=== PATIENT | female | born 1975 | race Hispanic/Latino ===

== ENCOUNTER 2021-02-07 16:08 | Emergency (ER) | payer MEDICAID, OTHER ==
[~2021-02-07] VITALS: Ht 152.4 cm; Wt 60.8 kg
[2021-02-07] MEDS ORDERED: NS 1,000 ML IV ONE ×2 (16:50→18:15)
[2021-02-07] MEDS ORDERED: KETOROLAC 30 MG/ML 1ML VIAL IV ONE (16:50)
[2021-02-07] MEDS ORDERED: METOCLOPRAMIDE INJ 10MG/2ML VIAL (J2765 PER 1) IV ONE (16:50)
[2021-02-07 17:30] LABS: BASO % 0.5 % (0.0-1.0); EOS % 0.4 % (0.0-3.0); HEMOGLOBIN 14.1 g/dl (12.0-15.5); LYMPH # 2.3 10^3/uL (1.5-5.0); LYMPH % 27.1 % (24.0-44.0); MEAN CORPUSCULAR HEMOGLOBIN 30.5 pg (27.0-33.0); MEAN CORPUSCULAR HGB CONC 33.6 g/dl (32.0-36.5); MEAN CORPUSCULAR VOLUME 90.7 fl (80.0-96.0); MONO # 0.3 10^3/uL (0.0-0.8); MONO % 3.4 % (2.0-8.0); NEUTROPHILS # 5.8 10^3/uL (1.5-8.5); NEUTROPHILS % 68.4 % (36.0-66.0); PLATELET COUNT, AUTOMATED 351 10^3/uL (150-450); RED BLOOD COUNT 4.63 10^6/uL (4.00-5.40); WHITE BLOOD COUNT 8.5 10^3/uL (4.0-10.0)
[2021-02-07] MEDS ORDERED: [UNRECOGNIZED DRUG - OTHER] PO (18:37)
[2021-02-07] MEDS ORDERED: SERO1TAB PO (18:37)
[2021-02-07] MEDS ORDERED: [UNRECOGNIZED DRUG - OTHER] PO (18:37)
[2021-02-07] MEDS ORDERED: SERT-141 PO (18:37)
[2021-02-07 19:30] VITALS: BP 140/87
== END 2021-02-07 20:12 | disposition home or self-care (01) ==
LOC: M ED 16:08
DX: R51.9 Headache, unspecified (principal); R11.0 Nausea; E86.0 Dehydration; J01.90 Acute sinusitis, unspecified; F41.9 Anxiety disorder, unspecified; F32.9 Major depressive disorder, single episode, unspecified; F17.200 Nicotine dependence, unspecified, uncomplicated
CPT/HCPCS: 80047; 83735; 84702; 85025; 96361; 96374; 96375; 99284; J1885; J2765

== ENCOUNTER 2021-03-22 22:25 | Emergency (ER) | payer MEDICAID ==
[~2021-03-22] VITALS: Ht 152.4 cm; Wt 60.5 kg
[~2021-03-22 22:25] MED LIST: SERO1TAB PO; SERT-141 PO; [UNRECOGNIZED DRUG - OTHER] PO; [UNRECOGNIZED DRUG - OTHER] PO
[2021-03-23] MEDS ORDERED: METOCLOPRAMIDE INJ 10MG/2ML VIAL (J2765 PER 1) IV ONE (00:20)
[2021-03-23] MEDS ORDERED: NS 1,000 ML IV ONE (00:20)
[2021-03-23 01:01] LABS: BASO % 0.3 % (0.0-1.0); EOS % 0.1 % (0.0-3.0); HEMATOCRIT 41.7 % (36.0-47.0); HEMOGLOBIN 13.7 g/dl (12.0-15.5); LYMPH # 1.8 10^3/uL (1.5-5.0); LYMPH % 17.8 % (24.0-44.0); MEAN CORPUSCULAR HEMOGLOBIN 29.8 pg (27.0-33.0); MEAN CORPUSCULAR HGB CONC 32.9 g/dl (32.0-36.5); MEAN CORPUSCULAR VOLUME 90.7 fl (80.0-96.0); MONO # 0.6 10^3/uL (0.0-0.8); MONO % 5.8 % (2.0-8.0); NEUTROPHILS # 7.4 10^3/uL (1.5-8.5); NEUTROPHILS % 75.5 % (36.0-66.0); PLATELET COUNT, AUTOMATED 298 10^3/uL (150-450); WHITE BLOOD COUNT 9.9 10^3/uL (4.0-10.0)
--- NOTE | 2021-03-23 01:10 | REPVR ---
PROCEDURE INFORMATION: Exam: XR Chest Exam date and time: 03/23/2021 12:30 AM Age: 45 years old Clinical indication: Other: Hypertensive TECHNIQUE: Imaging protocol: XR of the chest. Views: 1 view. COMPARISON: No relevant prior studies available. FINDINGS: Lungs: Unremarkable. No consolidation. Pleural spaces: Unremarkable. No pleural effusion. No pneumothorax. Heart/Mediastinum: Unremarkable. No cardiomegaly. Bones/joints: Unremarkable. IMPRESSION: No acute findings. Electronically signed by: Daniel Lainez On 03/23/2021 01:09:41 AM
--- NOTE | 2021-03-23 01:10 | REPVR ---
PROCEDURE INFORMATION: Exam: CT Head Without Contrast Exam date and time: 03/23/2021 12:17 AM Age: 45 years old Clinical indication: Pain; Headache; Migraine; Aura effect not specified; Additional info: Headache, HTN TECHNIQUE: Imaging protocol: Computed tomography of the head without contrast. Radiation optimization: All CT scans at this facility use at least one of these dose optimization techniques: automated exposure control; mA and/or kV adjustment per patient size (includes targeted exams where dose is matched to clinical indication); or iterative reconstruction. COMPARISON: No relevant prior studies available. FINDINGS: Brain: Normal. No hemorrhage. Unremarkable white matter. No mass effect. Cerebral ventricles: No ventriculomegaly. Paranasal sinuses: Visualized sinuses are unremarkable. No fluid levels. Mastoid air cells: Visualized mastoid air cells are well aerated. Bones/joints: Unremarkable. No acute fracture. Soft tissues: Unremarkable. IMPRESSION: No acute intracranial abnormality. Electronically signed by: Daniel Lainez On 03/23/2021 01:10:26 AM
[2021-03-23 01:34] LABS: BLOOD UREA NITROGEN 12 MG/DL (7-18); CALCIUM LEVEL 9.1 MG/DL (8.5-10.1); CARBON DIOXIDE LEVEL 27 MEQ/L (21-32); CHLORIDE LEVEL 108 MEQ/L (98-107); CK-MB VALUE MASS < 1.0 NG/ML (<3.6); CPK CREATINE PHOSPHOKINASE 106 U/L (26-192); CREATININE FOR GFR 0.78 MG/DL (0.55-1.30); GLOMERULAR FILTRATION RATE > 60.0 (>58); GLUCOSE, FASTING 102 MG/DL (70-100); MB/CK RELATIVE INDEX 0.94 (< OR =4); POTASSIUM SERUM 3.8 MEQ/L (3.5-5.1); SODIUM LEVEL 140 MEQ/L (136-145); TROPONIN I < 0.02 NG/ML (< 0.10)
[2021-03-23 03:00] VITALS: BP 144/89
--- NOTE | 2021-03-23 06:53 | ECGEPIP ---
[facility] - ED Test Date: 2021-03-23 Pat Name: SEAN HOLM Department: Room: - Gender: Female Production Control Expert: JOSE ALEJANDRO : 1975 Requested By: JANNETTE Tirado Order Number: [id number] Reading MD: Luis Isbell Measurements Intervals [place] Rate: 86 P: 49 [place]: 132 QRS: 57 QRSD: 86 T: 33 QT: 386 QTc: 461 Interpretive Statements Normal sinus rhythm INCOMPLETE RIGHT BUNDLE BRANCH BLOCK NO PRIORS FOR COMPARISON Electronically Signed on 03-23-2021 6:52:45 EDT by Luis Isbell
== END 2021-03-23 03:29 | disposition home or self-care (01) ==
LOC: M ED 22:25
DX: R51.9 Headache, unspecified (principal); I45.19 Other right bundle-branch block; Z79.899 Other long term (current) drug therapy; Z98.890 Other specified postprocedural states
CPT/HCPCS: 70450; 71045; 80048; 82550; 82553; 84484; 85025; 93005; 93041; 94760; 96374; 99285; J2765